=== PATIENT | female | born 1980 | race Caucasian/White ===

== ENCOUNTER 2017-06-04 17:51 | Emergency (ER) | payer OTHER ==
[2017-06-04] MEDS: KETOROLAC 60 MG/2 ML INJ. IM (18:18)
== END 2017-06-04 18:39 | disposition home or self-care (01) ==
LOC: ER 17:51
DX: M54.42 Lumbago with sciatica, left side (principal); G89.29 Other chronic pain; Z88.0 Allergy status to penicillin
CPT/HCPCS: 96372; 99283; J1885